=== PATIENT | male | born 1965 | race Caucasian/White ===

== ENCOUNTER 2020-12-13 19:12 | Emergency (ER) | payer BC ==
[~2020-12-13] VITALS: Ht 170.2 cm; Wt 81.6 kg
[2020-12-13] MEDS ORDERED: VALS160T2 PO (19:25)
--- NOTE | 2020-12-13 19:30 | NUR ---
Pt brought straight back to [facility] via walking by triage nurse Joni for hypertensive crisis SBP in the 190s. Most recent BP 158/107. Pt AAOx4 with good color, temp and appearance. Pt denies any pain, nausea or discomfort. No s/sx of distress present. No diaphoresis or BONILLA, denies hearing heartbeat in ears. States that he was at [facility] a few days ago for same thing. Pt resting comfortably on gurney connected to bedside monitor awaitng EDMD for Eval.
--- NOTE | 2020-12-13 20:02 | NUR ---
EDMD at pt bedside for eval and PE.
--- NOTE | 2020-12-13 20:10 | NUR ---
Since pt was worked up yesterday at [facility], and has an appt to see PMD on Sunday, the EDMD found it superfluous to redue any labs or diagnostics here today, especially due to pts asymptomatic presentation. Pt agrees with EDMD's clinical judgment and states that he feels great, he also said he will contact PMD in AM and see if he can get his new BP med Valsartan dialed in a little better. EDTN decided to DC pt home and to have him follow up with PMD in AM to redose Valsartan prescribtion to be more effective at reducing BP and keeping it wnl.
--- NOTE | 2020-12-13 20:19 | NUR ---
Pt given DC instructions regarding management and tx of HTN. Pt told to follow up with PMD in AM to have the Valsartan med dialed in. Pt confirmed understanding of aftercare and said he will definitly contact PMD tomorrow morning. VSS, last BP 185/130, NSR without ectopy, lungs clear, RRR without m/g/r. Pt denies any pain, nausea or discomfort. States he feels great and is asking if he can go work out when BP is this high. Pt told that exercise can only reduce BP but that to not work out if he does not feel up to it. PE WNL, strong and equal broker in charge strength. Strong and reg pulses x 4ext. no s/sx of distress present. Pt dced home accompanied by .
[2020-12-13 21:06] VITALS: BP 158/107
== END 2020-12-13 20:19 | disposition home or self-care (01) ==
LOC: ER 19:14
DX: I10 Essential (primary) hypertension (principal); Z87.891 Personal history of nicotine dependence
CPT/HCPCS: A4663

== ENCOUNTER 2023-01-30 04:22 | Emergency (ER) | payer BC ==
[~2023-01-30] VITALS: Ht 170.2 cm; Wt 90.7 kg
[~2023-01-30 04:22] MED LIST: VALS160T2 PO
[2023-01-30] MEDS ORDERED: AMLO10TA59 PO (04:37)
[2023-01-30] MEDS ORDERED: HYDR12.55 PO (04:37)
[2023-01-30] MEDS ORDERED: VALS320T2 PO (04:37)
[2023-01-30] MEDS ORDERED: HYDROMORPHONE 1 MG/1 ML DISP.SYRIN IV ONE (04:45)
[2023-01-30] MEDS ORDERED: ONDANSETRON 4 MG/2 ML VIAL IV ONE ×2 (04:45→07:15)
[2023-01-30] MEDS ORDERED: ONDANSETRON 4 MG/2 ML VIAL ONE ×2 (04:49→07:06)
[2023-01-30] MEDS ORDERED: HYDROMORPHONE 1 MG/1 ML DISP.SYRIN ONE (04:49)
[2023-01-30 05:16] LABS: BASOPHILS % (AUTO) 0.3 % (0.0-2.0); EOSINOPHILS % (AUTO) 0.4 % (0.0-7.0); HEMATOCRIT 37.4 % (36.7-47.1); HEMOGLOBIN 12.8 g/dL (12.5-16.3); MEAN CORPUSCULAR HEMOGLOBIN 30.3 uug (23.8-33.4); MEAN CORPUSCULAR HGB CONC 34 g/dL (32.5-36.3); MEAN CORPUSCULAR VOLUME 88.4 fL (73.0-96.2); MONOCYTES # (AUTO) 0.7 K/uL (0.1-1.30); MONOCYTES % (AUTO) 6.2 % (0.0-11.0); NEUTROPHILS # (AUTO) 9.7 K/uL (1.8-8.9); NEUTROPHILS % (AUTO) 84.1 % (38.5-71.5); PLATELET COUNT (AUTO) 196 K/uL (152-348); RED BLOOD CELL COUNT(AUTO) 4.23 MIL/uL (4.06-5.63); RED CELL DISTRIBUTION WIDTH 12.9 % (12.1-16.2); WHITE BLOOD COUNT (AUTO) 11.6 K/uL (3.6-10.2)
[2023-01-30 05:31] LABS: CALCIUM 11.2 mg/dL (8.5-10.1); CREATININE 1.7 mg/dL (0.6-1.3); POTASSIUM 3.5 mmol/L (3.5-5.1)
[2023-01-30 05:36] LABS: ALBUMIN 3.9 g/dL (3.4-5.0); BILIRUBIN,DIRECT 0.1 mg/dL (0.0-0.2); BILIRUBIN,TOTAL 0.5 mg/dL (0.2-1.0); DIFFERENTIAL COMMENT 1; TOTAL PROTEIN, SERUM 6.9 g/dL (6.4-8.2)
[2023-01-30] MEDS ORDERED: IV NORMAL SALINE 1000 ML BAG IV ONE (05:45)
[2023-01-30 06:20] LABS: *BILIRUBIN,URIN NEGATIVE (NEGATIVE); *BLOOD, URINE 1+ (NEGATIVE); *CLARITY,URINE CLEAR (CLEAR); *COLOR,URINE YELLOW (YELLOW); *KETONES,URINE 1+ (NEGATIVE); *PROTEIN,URINE NEGATIVE (NEGATIVE); *UROBILINOGEN,URINE 0.2 E.U./dl (NORMAL); LEUKOCYTE ESTERASE ,URINE NEGATIVE (NEGATIVE); PH,URINE 5.5 (5.0-8.0); UGLUCOSE NEGATIVE (NEGATIVE)
[2023-01-30 06:22] LABS: BACTERIA,URINE NONE SEEN /HPF (NONE SEEN); NITRITE, URINE NEGATIVE (NEGATIVE); SQUAMOUS EPITHELIAL CELL,UR NONE SEEN /HPF (NONE SEEN); WBC,URINE 0-3 /HPF (0-3)
[2023-01-30] MEDS ORDERED: FAMOTIDINE 20 MG TABLET PO ONE (07:00)
[2023-01-30] MEDS ORDERED: CALCIUM CARBONATE 500 MG TAB.CHEW PO ONE (07:00)
[2023-01-30] MEDS ORDERED: CALCIUM CARBONATE 500 MG TAB.CHEW PO SCH (07:00)
[2023-01-30] MEDS ORDERED: FAMOTIDINE 20 MG TABLET ONE (07:02)
[2023-01-30] MEDS ORDERED: CALCIUM CARBONATE 500 MG TAB.CHEW ONE (07:07)
[2023-01-30] MEDS ORDERED: KETOROLAC TROMETHAMINE 15 MG INJ IVP ONE (07:15)
[2023-01-30] MEDS ORDERED: KETOROLAC TROMETHAMINE 15 MG INJ ONE (07:19)
[2023-01-30] MEDS ORDERED: IBUP-1953 PO (07:54)
[2023-01-30] MEDS ORDERED: ONDA4TAB5 PO (07:54)
[2023-01-30] MEDS ORDERED: OXYC5CAP18 PO (07:54)
[2023-01-30] MEDS ORDERED: ACET-2605 PO (07:54)
[2023-01-30] MEDS ORDERED: DOCU250C14 PO (07:54)
[2023-01-30] MEDS ORDERED: POLY17PO4 PO (07:54)
[2023-01-30 08:59] VITALS: BP 143/81; TEMP 98.2; O2SAT 98
== END 2023-01-30 09:00 | disposition home or self-care (01) ==
LOC: ER 04:27
DX: R10.31 Right lower quadrant pain (principal); F17.200 Nicotine dependence, unspecified, uncomplicated; Z79.899 Other long term (current) drug therapy
CPT/HCPCS: 36415; 83690; 85025; A4606; A4663; J1170; J1885; J2405; J7040